=== PATIENT | male | born 1960 | race Caucasian/White ===

== ENCOUNTER 2017-11-28 07:02 | Outpatient (CLI) | payer BC ==
[2017-11-28] VITALS (16 sets, daily range): BP systolic 94–128; BP diastolic 64–84; PULSE 71–81
[~2017-11-28] VITALS: Ht 170.2 cm; Wt 104.5 kg
[~2017-11-28 07:02] MED LIST: LASIX 20MG TABL20 MG PO; TOPROL XL 25MG25 MG PO; ULTRAM 50MG TAB50 MG PO; ZESTRIL 10MG10 MG PO
[2017-11-28] MEDS ORDERED: MINOCYCLIN100 MG/CAP PO (07:18)
[2017-11-28] MEDS ORDERED: BUSPAR10 MG PO (07:18)
== END 2017-11-28 12:05 | disposition home or self-care (01) ==
LOC: COL.RAD 07:02
DX: J43.9 Emphysema, unspecified (principal); Z98.52 Vasectomy status; Z98.1 Arthrodesis status; Z95.828 Presence of other vascular implants and grafts; Z89.021 Acquired absence of right finger(s); Z87.891 Personal history of nicotine dependence
CPT/HCPCS: J3010

== ENCOUNTER → 2017-12-28 | Outpatient (CLI) | payer BC ==
[~2017-12-28] MED LIST changes: +BUSPAR10 MG PO; +MINOCYCLIN100 MG/CAP PO
== END ==
LOC: COL.RAD 06:52
DX: Z01.89 Encounter for other specified special examinations (principal)

== ENCOUNTER → 2018-02-14 | Outpatient (CLI) | payer BC | LOC: COL.PUL 07:49 | DX: C34.12 Malignant neoplasm of upper lobe, left bronchus or lung (principal); J44.9 Chronic obstructive pulmonary disease, unspecified ==

== ENCOUNTER → 2018-02-15 | Outpatient (CLI) | payer BC | LOC: COL.RAD 07:50 | DX: C34.12 Malignant neoplasm of upper lobe, left bronchus or lung (principal); J44.9 Chronic obstructive pulmonary disease, unspecified | CPT/HCPCS: A9585 ==

== ENCOUNTER 2019-04-03 11:50 | Inpatient (IN) | payer BC ==
[~2019-04-03] VITALS: Ht 170.2 cm; Wt 109.2 kg
[2019-04-03] MEDS ORDERED: DESYREL 50MG50 MG PO (13:13)
[2019-04-03] MEDS ORDERED: LEXAPRO 10MG10 MG PO (13:13)
[2019-04-03] MEDS ORDERED: PERCOCET 325 MG1 TA2 PO (13:14)
[2019-04-03 13:43] LABS: BASO # 0.1 (0.0-0.2); BASO % 0.4 % (0.0-2.0); EOS % 0.1 % (0-4.0); GRAN # 15.8 (1.4-6.5); GRAN % 87.5 % (42.2-75.2); HEMATOCRIT 51.1 % (42.0-52.0); HEMOGLOBIN 17.1 g/dl (13.5-18.0); LYMPH % 5.5 % (20.0-51.0); MEAN CELL VOLUME 102 fl (80.0-100.0); MEAN CORPUSCULAR HEMOGLOBIN 34 pg (27.0-31.0); MEAN CORPUSCULAR HGB CONC 34 g/dl (33.0-37.0); MEAN PLATELET VOLUME 9.7 fl (7.4-10.4); MONO % 5.4 % (1.7-9.3); PLATELET COUNT 373 K/mm3 (130-400); RED BLOOD COUNT 5.03 M/mm3 (4.20-5.60); REDCELL DISTRIBUTION WIDTH-CV 13.8 % (11.5-14.5)
[2019-04-03 13:50] LABS: ALANINE AMINOTRANSFERASE 36 U/L (21-72); ALBUMIN 4.4 gm/dL (3.5-5.0); ALKALINE PHOSPHATASE 115 U/L (50-136); ANION GAP 10 mmol/L (7-16); AST,SGOT 36 U/L (15-37); BILIRUBIN,TOTAL 0.6 mg/dL (0.0-1.0); BLOOD UREA NITROGEN 17 mg/dL (9-20); CALCIUM 9.4 mg/dL (8.4-10.2); CARBON DIOXIDE 27 mmol/L (22-30); CHLORIDE 101 mmol/L (98-107); CREATININE, serum 0.79 (0.66-1.25); GLUCOSE 144 mg/dL (74-106); POTASSIUM 4.4 mmol/L (3.4-5.0); SODIUM 139 mmol/L (137-145); TOTAL PROTEIN 7.7 gm/dL (6.4-8.2)
[2019-04-03 14:02] LABS: TROPONIN-I < 0.012 ng/mL (0.000-0.035)
[2019-04-03 17:38] VITALS: PULSE 88; TEMP 98.3
--- NOTE | 2019-04-03 17:41 | NUR ---
PATIENT ARRIVED TO UNIT FROM ED. PATIENT IS HERE WTIH DX OF COPD EXACERBATION AND CHEST PAIN. PATIENT STATES HE FEELS HE PULLED A MUSCLE COUGHING AND IT IS NOT "HEART RELATED." PATIENT DENIES ANY OTHER PAIN AT THIS TIME. PATIENT HAS PORT TO RIGHT SIDE OF CHEST. SITE IS CLEAN, DRY, NO SIGN OF INFECTION. PATIENT IS SMOKER WITH HISTORY OF HTN AND HYPERLIPIDEMIA. PATIENT IS ON O2 AT 2L. PATIENT VSS AND IS ALERT AND ORIENTED. PATIENT AMULBATES ON OWN. PATIENT HAS ALLERGY TO ASPIRIN AND NSAIDS. PATIENT RESTING IN ROOM. CALL LIGHT WITHIN REACH, WILL CONTINUE TO MONITOR
[2019-04-03] MEDS ORDERED: LEVAQUIN 5500 MG/TA1 PO (18:19)
[2019-04-03] MEDS ORDERED: PREDNISONE10 MG PO (18:20)
[2019-04-03 19:40] VITALS: BP 115/78; PULSE 107; TEMP 98
--- NOTE | 2019-04-03 19:50 | NUR ---
Patient report received from EVELIO Montemayor at shift change. Upon assessment at this time patient is resting comfortably sitting up on the side of the bed, denies SOB despite breathing with pursed lips. Patient is currently on RA, sats are at 93%. Rates pain at 8/10 to right chest, prn percocet given. RT to get cpap for bedtime. Lungs are coarse throughout. MD still to see patient tonight. No other needs reported at this time.
--- NOTE | 2019-04-03 21:42 | NUR ---
AT 2130 PT WAS PUT ON OUR CPAP MACHINE. PT WEARING A MEDIUM MASK, WITH A 2 LPM BLEED IN, SET ON AUTO CPAP. PT IS ON AND MIGUEL WELL RESTING COMFORTABLY WHILE WATCHING TV. PTS SAT WAS 96% ON THE 2LPM BLEED IN. NO DISTRESS WAS NOTED AT THIS TIME
[2019-04-04] VITALS: BP 117/52; PULSE 93; TEMP 97.9
[2019-04-04 04:00] VITALS: BP 109/55; PULSE 81; TEMP 97.8
[2019-04-04 06:59] LABS: HEMATOCRIT 48.3 % (42.0-52.0); MEAN CELL VOLUME 101 fl (80.0-100.0); MEAN CORPUSCULAR HEMOGLOBIN 33 pg (27.0-31.0); MEAN CORPUSCULAR HGB CONC 33 g/dl (33.0-37.0); MEAN PLATELET VOLUME 9.8 fl (7.4-10.4); PLATELET COUNT 359 K/mm3 (130-400); REDCELL DISTRIBUTION WIDTH-CV 13.5 % (11.5-14.5)
[2019-04-04 07:33] LABS: CALCIUM 9.2 mg/dL (8.4-10.2); CREATININE, serum 0.67 (0.66-1.25); POTASSIUM 4.3 mmol/L (3.4-5.0)
[2019-04-04 08:13] LABS: BAND 3 % (0-10); HYPOCHROMIA 1+; LYMPHOCYTE 4 % (20.0-51.0); MICROCYTOSIS 1+; NEUTROPHILS 89 % (42.0-75.2); PLATELET ESTIMATE NORMAL (NORMAL)
[2019-04-04 08:50] VITALS: BP 116/58; PULSE 86; TEMP 98.1
--- NOTE | 2019-04-04 08:50 | NUR ---
Patient in bed resting. Alert and oriented x 3. Shift assessment complete. Lungs course throughout all diamond. States pain better after percocet adminisration this AM. Port to right chest, flushes without difficulty, no blood return. Patient states this is normal. Denies further needs at this time.
--- NOTE | 2019-04-04 09:30 | NUR ---
Patient placed in droplet precautions.
--- NOTE | 2019-04-04 10:05 | NUR ---
SW met with the patient to discuss a discharge plan. The patient lives in [place]. The patient has a CPAP and uses oxygen at night. Patient receives oxygen supplies from [facility] in [place]. The patient has a cane and a walker he uses as needed. The patient's PCP is Dr. Marisol Varma and patient receives medications from [facility] in [place] with no difficulties. The patient does not have advanced directives in the EMR but reports they are completed and designate his Bethel Drake. The patient plans to return home upon discharge with one of his family members providing transportation. There are no additional needs at this time.
[2019-04-04 12:15] VITALS: BP 124/60; PULSE 78; TEMP 98.8
--- NOTE | 2019-04-04 12:51 | NUR ---
PATIENT SITTING UP IN BED WATCHING TV, VERY PLESANT AND AGREEABLE. PATIENT CURRENTLY ON DROPLET PERCAUTIONS FOR RSV. PATIETN VOICES CONCERN ABOUT THE ODDS OF GRANDCHILDREN [place]. TAR HEATER OPERATOR EDUCATED PATIENT REGARDING THE SPREAD OF RSV. PATIENT AGREEABLE AND THANKED TAR HEATER OPERATOR. PATIENT TO DISCHARGE HOME TODAY. AWAITING ORDERS.
[2019-04-04] MEDS ORDERED: PROAIR HFA0.09 MG/AC IH (14:11)
--- NOTE | 2019-04-04 16:22 | NUR ---
Discharge education provided to patient. Educated on when to call provider and new home medication. All questions answered. De-accessed port to right chest. Denies pain or further needs at this time. Patient out by wheelchair with surgical staff.
== END 2019-04-04 16:00 | disposition home or self-care (01) | DRG 202 ==
LOC: COL.ER 11:50 → SURG 15:18
PROVIDERS: Emergency Medicine; Physician Assistant; ADMIT Family Medicine
DX: J20.4 Acute bronchitis due to parainfluenza virus (principal); J44.0 Chronic obstructive pulmonary disease with (acute) lower respiratory infection; J44.1 Chronic obstructive pulmonary disease with (acute) exacerbation; J20.6 Acute bronchitis due to rhinovirus; F17.210 Nicotine dependence, cigarettes, uncomplicated; R91.8 Other nonspecific abnormal finding of lung field; F32.9 Major depressive disorder, single episode, unspecified; Z66 Do not resuscitate; F41.9 Anxiety disorder, unspecified; R09.02 Hypoxemia; I10 Essential (primary) hypertension; E66.9 Obesity, unspecified; G47.33 Obstructive sleep apnea (adult) (pediatric); R73.9 Hyperglycemia, unspecified; D72.829 Elevated white blood cell count, unspecified; T38.0X5A Adverse effect of glucocorticoids and synthetic analogues, initial encounter; B97.10 Unspecified enterovirus as the cause of diseases classified elsewhere; Z92.21 Personal history of antineoplastic chemotherapy; Z90.2 Acquired absence of lung [part of]; Z85.118 Personal history of other malignant neoplasm of bronchus and lung; Z79.52 Long term (current) use of systemic steroids; Z68.38 Body mass index [BMI] 38.0-38.9, adult
CPT/HCPCS: 99222-AI; J1650; J1956; J2930; J3475; Q9967